=== PATIENT | female | born 1970 | race Caucasian/White ===

== ENCOUNTER 2019-01-24 16:53 | Emergency (ER) | payer OTHER ==
[~2019-01-24] VITALS: Ht 162.6 cm; Wt 81.6 kg
[2019-01-24] MEDS ORDERED: COZAAR25 MG (17:01)
[2019-01-24] MEDS ORDERED: ZYRTEC10 M3 (17:02)
[2019-01-24] MEDS ORDERED: SINGULAIR10 MG (17:02)
[2019-01-24] MEDS ORDERED: LEVOTHYROXINE25 MCG (17:02)
[2019-01-24] MEDS ORDERED: PAXIL20 MG (17:02)
[2019-01-24] MEDS ORDERED: ZITHROMAX500 MG PO (17:41)
== END 2019-01-24 17:53 | disposition home or self-care (01) ==
LOC: ER 16:53
DX: H60.8X1 Other otitis externa, right ear (principal)